=== PATIENT | female | born 1995 | race Caucasian/White ===

== ENCOUNTER 2020-03-06 00:30 | Emergency (ER) | payer MEDICAID, SELFPAY ==
[2020-03-06 00:40] VITALS: BP 122/78; PULSE 109; BMI 24.5
--- NOTE | 2020-03-06 00:44 | XR_ITS ---
EXAMINATION: XR CHEST CLINICAL INFORMATION: Overdose COMPARISON: None TECHNIQUE: Frontal view of the chest was obtained. FINDINGS: Cardiac leads overlie the chest. The lungs are well expanded. There is no focal consolidation, edema, or effusion. No pneumothorax. The cardiomediastinal silhouette is within normal limits. No acute osseous abnormality. XR/XR chest 1V IMPRESSION: Clear lungs.
--- NOTE | 2020-03-06 00:45 | ECG_ITS ---
Test Reason : OVERDOSE Blood Pressure : / mmHG Vent. Rate : 112 BPM Atrial Rate : 112 BPM P-R Int : 160 ms QRS Dur : 096 ms QT Int : 364 ms P-R-T Axes : 074 076 080 degrees QTc Int : 496 ms Sinus tachycardia Possible Left atrial enlargement Borderline ECG No previous ECGs available Referred By: Siva Hatch Electronically Signed By:ORIN DIAZ MD
[2020-03-06 00:46] LABS: Glucose, Whole Blood 374 mg/dL (60-115)
--- NOTE | 2020-03-06 00:47 | ED_ITS ---
HPI - Overdose General Chief Complaint: Overdose Stated Complaint: unresponsive Time Seen by Provider: 03/06/20 00:44 Source: family and EMS Mode of arrival: other History of Present Illness HPI Narrative: 25-year-old female brought in unresponsive. I was present on arrival. Patient was brought in by friend via private car unresponsive, EMS with outside then put her on their stretcher. Patient got no response to initial Narcan rest into the emergency department no further information at the time Related Data Allergies Allergy/AdvReac Type Severity Reaction Status Date / Time No Known Allergies Allergy Verified 03/06/20 00:44 Review of Systems Review of Systems: Unable to obtain secondary to loss of consciousness Yes Unobtainable due to mental status PMFSH Past Medical History [facility] Narrative: Unable to obtain any past medical surgical or social history at this moment secondary to unresponsiveness Source: unable to obtain Social History Social History Alcohol intake: current Smoking Status: Never smoker Use of substances other than those prescribed or required for medical reasons: Yes Substance Use Type: Crack/Cocaine Last Used Substance: Just Prior to Admission Advance Directives: No Advance Directives Information Provided: No Physical Exam Vital Signs: Vital Signs: Last Vital Signs Temp 97.5 F 03/06/20 01:01 Pulse 105 H 03/06/20 01:01 Resp 20 03/06/20 01:01 BP 122/81 03/06/20 01:01 Pulse Ox 100 03/06/20 01:01 Body Mass Index 24.5 Vital signs reviewed Appearance: Unresponsive Eyes: Pupils equal, dilated ENT: Pharynx normal. Neck: Normal inspection. Neck supple. No lymph nodes noted. No crepitus CVS: Absent pulse Normal S1 and S2 Respiratory: No spontaneous breathing, clear lung sounds with bagging Abdomen: Soft , no distension, no rigidity, no erythema Skin: Skin warm and dry. Normal skin color. Normal skin turgor. Extremities: No lower extremity edema. Neurovascular intact to all extremities. No Lacerations. No Rash Neuro: Unresponsive. Course Course Course Narrative: 25-year-old female was dropped off out front for unresponsiveness after using drugs. Patient received 2 doses of Narcan, CPR and was given assisted ventilation with bag valve mask on arrival to emergency department after several minutes of CPR and assisted ventilation patient responded to IV Narcan. I spoke with patient now that she has the wake and alert. Which does admit to drug abuse prior to incident I then counseled the patient Patient given Narcan to go At discharge patient ambulation without dysfunction tolerating p.o. intake having normal reciprocal conversation Reevaluation(s) Reevaluation #1: Patient now awake and alert patient does admit to drug abuse chest x-ray reviewed by me without pneumothorax status post CPR Time: 01:04 Time: 03:38 Reevaluation #3: Patient now tolerating p.o. intake. Has ride home. Alert oriented x4. MDM - Overdose Lab Data Result diagrams: 03/06/20 01:21 03/06/20 01:21 Labs: Lab Results 03/06/20 03/06/20 03/06/20 Range/Units 00:35 01:21 01:21 WBC 22.8 H (4.8-10.8) X10*3/uL RBC 4.02 L (4.20-5.50) X10*6/uL Hgb 11.8 L (12.0-16.0) g/dl Hct 37.7 (37-47) % MCV 93.8 (80-98) fL MCH 29.4 (27.0-33.0) pg MCHC 31.3 (31.0-35.0) g/dl RDW 13.2 (11.0-16.0) % Plt Count 418 H (160-400) X10*3/uL MPV 10.5 (9.4-12.3) fL Immature Gran % (Auto) Cancelled Neut % (Auto) Cancelled Lymph % (Auto) Cancelled [place] % (Auto) Cancelled Eos % (Auto) Cancelled Baso % (Auto) Cancelled Lymph # (Auto) Cancelled [place] # (Auto) Cancelled Eos # (Auto) Cancelled Baso # (Auto) Cancelled Abs Immat Gran (auto) Cancelled Absolute Neuts (auto) Cancelled Absolute Nucleated RBC 0.000 (0.0-0.012) X10*3/uL Nucleated RBC % (auto) 0.0 (0.0-0.2) /100WBC Neutrophils % (Manual) 59 (45-73) % Band Neutrophils % 1 L (3-5) % Lymphocytes % (Manual) 28 (20-40) % Monocytes % (Manual) 4 (2-11) % Eosinophils % (Manual) 2 (0-4) % Basophils % (Manual) 2 H (0-1) % Metamyelocytes % 2 % Myelocytes % 2 % Abs Neuts (Manual) 13.7 H (2.2-7.9) X10*3/uL Lymphocytes # (Manual) 6.4 H (0.6-4.8) X10*3/uL Monocytes # (Manual) 0.9 (0.0-1.2) X10*3/uL Eosinophils # (Manual) 0.5 (0.0-0.8) X10*3/UL Basophils # (Manual) 0.5 H (0.0-0.3) X10*3/uL Metamyelocytes # 0.5 X10*3/uL Myelocytes # 0.5 X10*/uL Platelet Estimate NORMAL (NORMAL) Large Platelets PRESENT Plt Morphology Comment NORMAL RBC Morphology NORMAL Sodium 137 (135-145) mmol/L Potassium 3.8 (3.3-5.1) mmol/l Chloride 102 (96-108) mmol/L Carbon Dioxide 19 L (22-29) mmol/L Anion Gap 20 (12-20) BUN 23 H (9-16) mg/dL Creatinine 1.51 H (0.5-1.4) mg/dL Estim Creat Clear Calc 46.1 Estimated GFR 41 POC Glucose 374 H* (60-115) mg/dL Random Glucose 435 H* (60-115) mg/dL Calcium 8.5 (8.4-10.2) mg/dL Total Bilirubin < 0.2 (0.0-1.0) mg/dL Direct Bilirubin < 0.2 (0.0-0.5) mg/dL AST 65 H (5-31) U/L ALT 63 H (0-31) U/L Alkaline Phosphatase 87 (39-117) U/L Troponin I High Sens (<3.5-17.0) ng/L Total Protein 7.8 (6.5-8.0) g/dL Albumin 4.1 (3.5-5.0) g/dL Lipase 36 (8-78) U/L Beta HCG, Quant < 2 mIU/mL Urine Opiates Screen (Not Detect) Ur Barbiturates Screen (Not Detect) Ur Phencyclidine Scrn (Not Detect) Ur Amphetamines Screen (Not Detect) U Benzodiazepines Scrn (Not Detect) Urine Cocaine Screen (Not Detect) U Marijuana (THC) Screen (Not Detect) Ethyl Alcohol mg/dL 03/06/20 03/06/20 03/06/20 Range/Units 01:21 01:21 01:21 WBC (4.8-10.8) X10*3/uL RBC (4.20-5.50) X10*6/uL Hgb (12.0-16.0) g/dl Hct (37-47) % MCV (80-98) fL MCH (27.0-33.0) pg MCHC (31.0-35.0) g/dl RDW (11.0-16.0) % Plt Count (160-400) X10*3/uL MPV (9.4-12.3) fL Immature Gran % (Auto) Neut % (Auto) Lymph % (Auto) [place] % (Auto) Eos % (Auto) Baso % (Auto) Lymph # (Auto) [place] # (Auto) Eos # (Auto) Baso # (Auto) Abs Immat Gran (auto) Absolute Neuts (auto) Absolute Nucleated RBC (0.0-0.012) X10*3/uL Nucleated RBC % (auto) (0.0-0.2) /100WBC Neutrophils % (Manual) (45-73) % Band Neutrophils % (3-5) % Lymphocytes % (Manual) (20-40) % Monocytes % (Manual) (2-11) % Eosinophils % (Manual) (0-4) % Basophils % (Manual) (0-1) % Metamyelocytes % % Myelocytes % % Abs Neuts (Manual) (2.2-7.9) X10*3/uL Lymphocytes # (Manual) (0.6-4.8) X10*3/uL Monocytes # (Manual) (0.0-1.2) X10*3/uL Eosinophils # (Manual) (0.0-0.8) X10*3/UL Basophils # (Manual) (0.0-0.3) X10*3/uL Metamyelocytes # X10*3/uL Myelocytes # X10*/uL Platelet Estimate (NORMAL) Large Platelets Plt Morphology Comment RBC Morphology Sodium (135-145) mmol/L Potassium (3.3-5.1) mmol/l Chloride (96-108) mmol/L Carbon Dioxide (22-29) mmol/L Anion Gap (12-20) BUN (9-16) mg/dL Creatinine (0.5-1.4) mg/dL Estim Creat Clear Calc Estimated GFR POC Glucose (60-115) mg/dL Random Glucose (60-115) mg/dL Calcium (8.4-10.2) mg/dL Total Bilirubin (0.0-1.0) mg/dL Direct Bilirubin (0.0-0.5) mg/dL AST (5-31) U/L ALT (0-31) U/L Alkaline Phosphatase (39-117) U/L Troponin I High Sens 4.2 (<3.5-17.0) ng/L Total Protein (6.5-8.0) g/dL Albumin (3.5-5.0) g/dL Lipase (8-78) U/L Beta HCG, Quant mIU/mL Urine Opiates Screen Not Detected (Not Detect) Ur Barbiturates Screen Not Detected (Not Detect) Ur Phencyclidine Scrn Not Detected (Not Detect) Ur Amphetamines Screen Not Detected (Not Detect) U Benzodiazepines Scrn Not Detected (Not Detect) Urine Cocaine Screen POSITIVE H (Not Detect) U Marijuana (THC) Screen Not Detected (Not Detect) Ethyl Alcohol 25 mg/dL ECG Data Attestation: I personally reviewed and interpreted this ECG as follows: Interpretation: 112 beats per minute. Sinus tachycardia. Normal axis. No ST-T changes Critical Care Time Critical Care Time Critical Care Time: Yes Total Critical Care Time: 35 Attestation: I attest to my critical care Discharge Plan Discharge Clinical Impression: Drug overdose Qualifiers: Encounter type: initial encounter Injury intent: accidental or unintentional Qualified Code(s): T50.901A - Poisoning by unspecified drugs, medicaments and biological substances, accidental (unintentional), initial encounter Cocaine intoxication Qualifiers: Complication of substance-induced condition: with unspecified complication Qualified Code(s): F14.929 - Cocaine use, unspecified with intoxication, unspecified Patient Disposition: Home, Self-Care Instructions: Adult Overdose (ED) Additional Instructions: Thank you for visiting the emergency department today. If your symptoms worsen or do not resolve completely please return to the emergency department immediately or call 911. If you have any questions please call your primary care physician Referrals: [facility] [Provider Group] - 2 days
[2020-03-06 01:01] VITALS: BP 122/81; PULSE 105; RESP 20; TEMP 36.4; O2SAT 100
[2020-03-06 01:31] LABS: Hematocrit 37.7 % (37-47); Hemoglobin 11.8 g/dl (12.0-16.0); Mean Corpuscular HGB Conc 31.3 g/dl (31.0-35.0); Mean Corpuscular Hemoglobin 29.4 pg (27.0-33.0); Mean Corpuscular Volume 93.8 fL (80-98); Mean Platelet Volume 10.5 fL (9.4-12.3); Platelet Count 418 X10*3/uL (160-400); Red Blood Count 4.02 X10*6/uL (4.20-5.50); Red Cell Distribution Width 13.2 % (11.0-16.0); White Blood Count 22.8 X10*3/uL (4.8-10.8)
[2020-03-06 01:45] LABS: Amphetamine Screen Urine Not Detected (Not Detect); Barbiturates, Urine Not Detected (Not Detect); Benzodiazepines Screen Urine Not Detected (Not Detect); Cannabinoid Screen Urine Not Detected (Not Detect); Cocaine Screen Urine POSITIVE (Not Detect); Opiate Screen Urine Not Detected (Not Detect); Phencyclidine Screen Urine Not Detected (Not Detect)
[2020-03-06 02:01] LABS: Ethanol 25 mg/dL
[2020-03-06 02:07] LABS: Troponin-I High Sensitivity 4.2 ng/L (<3.5-17.0)
[2020-03-06 02:08] LABS: Alanine Aminotransferase 63 U/L (0-31); Albumin Level 4.1 g/dL (3.5-5.0); Alkaline Phosphatase 87 U/L (39-117); Anion Gap 20 (12-20); Aspartate Amino Transferase 65 U/L (5-31); Bilirubin Direct < 0.2 mg/dL (0.0-0.5); Bilirubin Total < 0.2 mg/dL (0.0-1.0); Blood Urea Nitrogen 23 mg/dL (9-16); Calcium 8.5 mg/dL (8.4-10.2); Carbon Dioxide 19 mmol/L (22-29); Chloride 102 mmol/L (96-108); Creatinine Clr Calc Pharmacy 46.1; Estimated Glomerular Filt Rate 41; Glucose Random 435 mg/dL (60-115); Lipase 36 U/L (8-78); Potassium 3.8 mmol/l (3.3-5.1); Sodium 137 mmol/L (135-145); Total Protein 7.8 g/dL (6.5-8.0)
[2020-03-06 02:11] LABS: HCG Quantitative < 2 mIU/mL
[2020-03-06 03:09] LABS: Band Neutrophils Percent 1 % (3-5); Basophils Abs Manual 0.5 X10*3/uL (0.0-0.3); Basophils Percent Manual 2 % (0-1); Eosinophils Absolute Manual 0.5 X10*3/UL (0.0-0.8); Eosinophils Percent Manual 2 % (0-4); Lymphocytes Absolute Manual 6.4 X10*3/uL (0.6-4.8); Lymphocytes Percent Manual 28 % (20-40); Metamyelocytes Absolute 0.5 X10*3/uL; Metamyelocytes Percent 2 %; Monocytes Absolute Manual 0.9 X10*3/uL (0.0-1.2); Monocytes Percent Manual 4 % (2-11); Myelocytes Absolute 0.5 X10*/uL; Myelocytes Percent 2 %; Neutrophils Absolute Manual 13.7 X10*3/uL (2.2-7.9); Neutrophils Percent Manual 59 % (45-73)
[2020-03-06 03:11] LABS: Large Platelet PRESENT; Platelet Estimate NORMAL (NORMAL); Platelet Morphology Comment NORMAL; RBC Morphology NORMAL
[2020-03-06] MEDS: Acetaminophen 325 MG TABLET 650 MG PO (03:21)
[2020-03-06] MEDS: ondansetron HCL 4 MG/2 ML VIAL IVPUSH (03:53)
[2020-03-06] MEDS: Naloxone HCl Nasal TAKE HOME 4 MG SPRAY NOSTRILALT (04:01)
== END 2020-03-06 04:01 | disposition home or self-care (01) ==
PROVIDERS: Emergency Provider Emergency Medicine
DX: T40.5X1A Poisoning by cocaine, accidental (unintentional), initial encounter (principal); Y92.810 Car as the place of occurrence of the external cause; F14.929 Cocaine use, unspecified with intoxication, unspecified; Z71.51 Drug abuse counseling and surveillance of drug abuser
CPT/HCPCS: 36415; 71045; 80048; 80076; 80307; 80320; 82947; 83690; 84484; 84702; 85007; 85025; 85027; 85060; 93005; 96374; 96376; 99284; 99291; J2405